=== PATIENT | male | born 1980 | race Caucasian/White ===

== ENCOUNTER 2017-02-16 09:32 | Emergency (ER) | payer BC ==
[2017-02-16 09:39] VITALS: BP 138/97
--- NOTE | 2017-02-16 09:57 | UC ---
Throat Pain/Nasal Lionel HPI - HPI Summary HPI Summary: sore throat x 2 days + fever, chills, cough and nasal congestion - History of Current Complaint Chief Complaint: UCRespiratory Stated Complaint: COUGH,SORE THROAT Time Seen by Provider: 02/16/17 09:33 Hx Obtained From: Patient Onset/Duration: Gradual Onset, Lasting Days - 2, Still Present Severity: Moderate Cough: Nonproductive Associated Signs & Symptoms: Positive: Nasal Discharge, Fever. Negative: Negative, FB Sensation, Drooling, Wheezing, Hoarseness, Sinus Discomfort, Rash - Allergies/Home Medications Allergies/Adverse Reactions: Allergies Allergy/AdvReac Type Severity Reaction Status Date / Time No Known Allergies Allergy Verified 02/16/17 09:34 Home Medications: Home Medications NK [No Home Medications Reported] 02/16/17 [History Confirmed 02/16/17] PMH/Surg Hx/FS Hx/Imm Hx Previously Healthy: Yes - Surgical History Surgical History: None - Family History Known Family History: Negative: Diabetes - Social History Alcohol Use: None Substance Use Type: None Smoking Status (MU): Never Smoked Tobacco Type: Smokeless Tobacco - Immunization History Most Recent Influenza Vaccination: NONE 2016 Review of Systems Constitutional: Fever, Chills, Fatigue Skin: Negative Eyes: Negative ENT: Sore Throat, Nasal Discharge Respiratory: Cough Cardiovascular: Negative All Other Systems Reviewed And Are Negative: Yes Physical Exam Triage Information Reviewed: Yes Appearance: Well-Appearing, No Pain Distress, Well-Nourished Vital Signs: Initial Vital Signs Temp 97.9 F 02/16/17 09:35 Pulse 95 02/16/17 09:35 Resp 16 02/16/17 09:35 BP 138/97 02/16/17 09:35 Pulse Ox 98 02/16/17 09:35 Eye Exam: Normal Eyes: Positive: Conjunctiva Clear ENT: Positive: Normal ENT inspection, Hearing grossly normal, Pharynx normal Neck: Positive: Supple, Nontender, No Lymphadenopathy Respiratory: Positive: Chest non-tender, Lungs clear, Normal breath sounds Cardiovascular: Positive: RRR, No Murmur, Pulses Normal Abdominal Exam: Normal Abdomen Description: Positive: Nontender, Soft Bowel Sounds: Positive: Present Throat Pain/Nasal Course/Dx - Differential Dx/Diagnosis Provider Diagnoses: viral pharyngitis Discharge - Discharge Plan Condition: Stable Disposition: HOME Patient Education Materials: Viral Syndrome (ED) Referrals: No Primary Care Phys,NOPCP [Primary Care Provider] - If Needed
== END 2017-02-16 10:12 | disposition home or self-care (01) ==
LOC: UCCORT 09:32
DX: J02.8 Acute pharyngitis due to other specified organisms (principal); B97.89 Other viral agents as the cause of diseases classified elsewhere
CPT/HCPCS: 99211; G0463

== ENCOUNTER 2017-07-04 18:14 | Emergency (ER) | payer BC ==
[2017-07-04 18:29] VITALS: BP 132/91
[2017-07-04] MEDS ORDERED: Ketorolac INJ* 60 MG/2 ML VIAL IM ONE (18:50)
[2017-07-04] MEDS ORDERED: Cyclobenzaprine TAB* 10 MG PO ONE (18:51)
--- NOTE | 2017-07-04 18:58 | UC ---
Back Pain HPI - HPI Summary HPI Summary: patient was standing and moved his left leg forward, got a catch in his bag and could not put weight on it, pain over the low back, feels like strain in his legs. - History of Current Complaint Chief Complaint: UCBackPain Stated Complaint: BACK INJURY Hx Obtained From: Patient Onset/Duration: Sudden Onset, Lasting Hours Timing: Lasting Hours Severity Initially: Severe Severity Currently: Severe Character: Sharp, Spasmodic, Stiffness Aggravating Factor(s): Movement Alleviating Factor(s): Rest Associated Signs And Symptoms: Positive: Pain with Weight Bearing - Allergies/Home Medications Allergies/Adverse Reactions: Allergies Allergy/AdvReac Type Severity Reaction Status Date / Time No Known Allergies Allergy Verified 07/04/17 18:29 PMH/Surg Hx/FS Hx/Imm Hx Previously Healthy: Yes - Surgical History Surgical History: Yes Surgery Procedure, Year, and Place: right inguinal hernia repair - Family History Known Family History: Negative: Diabetes - Social History Alcohol Use: None Substance Use Type: None Smoking Status (MU): Never Smoked Tobacco Type: Smokeless Tobacco - Immunization History Most Recent Influenza Vaccination: NONE 2017 Review of Systems Constitutional: Negative Skin: Negative Eyes: Negative ENT: Negative Respiratory: Negative Cardiovascular: Negative Gastrointestinal: Negative Genitourinary: Negative Motor: Negative Neurovascular: Negative Musculoskeletal: Arthralgia, Decreased ROM, Myalgia Neurological: Negative Psychological: Negative Is Patient Immunocompromised?: No All Other Systems Reviewed And Are Negative: Yes Physical Exam Triage Information Reviewed: Yes Appearance: Well-Appearing, Well-Nourished, Pain Distress Vital Signs: Initial Vital Signs Temp 98.6 F 07/04/17 18:23 Pulse 78 07/04/17 18:23 Resp 16 07/04/17 18:23 BP 132/91 07/04/17 18:23 Pulse Ox 97 07/04/17 18:23 Vital Signs Reviewed: Yes Eye Exam: Normal ENT Exam: Normal Dental Exam: Normal Neck exam: Normal Neck: Positive: Supple, Nontender, No Lymphadenopathy Respiratory Exam: Normal Respiratory: Positive: Chest non-tender, Lungs clear, Normal breath sounds Cardiovascular Exam: Normal Cardiovascular: Positive: RRR, No Murmur, Pulses Normal Abdominal Exam: Normal Abdomen Description: Positive: Nontender, No Organomegaly, Soft Bowel Sounds: Positive: Present Musculoskeletal: Positive: No Edema, Strength Limited @ - with weight bearing due to pain in back, ROM Limited @ - lumbar flexion and ext, hip flx and ext of left leg Neurological Exam: Normal Neurological: Positive: Alert, Muscle Tone Normal Psychological Exam: Normal Skin Exam: Normal Back Pain Course/Dx - Course Course Of Treatment: hx obtained, exam performed ,meds reviewed, toradol and flexeril given. educated on stretches and care - Differential Dx/Diagnosis Differential Diagnosis/HQI/PQRI: Fracture, Herniated Disc, Strain, Sprain Provider Diagnoses: hip flexor strain, sacroilitis Discharge - Discharge Plan Condition: Stable Disposition: HOME Patient Education Materials: Sacroiliitis (ED) Referrals: Nishi Solares MD [Primary Care Provider] - Additional Instructions: 1. use the flexoril and Meloxicam for pain 2. Heat the back and front of thighs as much as possible. 3. dont sit still for to long, when you need to change position due so slowly. 4. use the pelic tilts and stretches demonstrated to get moving. 5. do the recommended stretches twice a day or more.
== END 2017-07-04 19:29 | disposition home or self-care (01) ==
LOC: UCCORT 18:14
DX: S73.102A Unspecified sprain of left hip, initial encounter (principal); X50.9XXA Other and unspecified overexertion or strenuous movements or postures, initial encounter; Y93.89 Activity, other specified; Y92.9 Unspecified place or not applicable; M46.1 Sacroiliitis, not elsewhere classified
CPT/HCPCS: 96372; 99212; A9270-GY; G0463; J1885